=== PATIENT | male | born 1950 | race Caucasian/White ===

== ENCOUNTER 2019-07-11 05:32 | Inpatient (IN) ==
[2019-07-11] MEDS ORDERED: ASPIRIN PO ONE (05:48)
[2019-07-11] MEDS ORDERED: NITROGLYCERIN SL ONE (05:48)
[2019-07-11] MEDS ORDERED: PEPCID IV ONE (05:49)
[2019-07-11] MEDS ORDERED: SODIUM CHLORIDE 0.9% INJ ONE (05:49)
--- NOTE | 2019-07-11 05:56 | PROVIDER DOCUMENTATION ---
HPI-General Adult - General Chief Complaint: Chest Pain Stated Complaint: CP Time Seen by Provider: 07/11/19 05:40 Source: patient Allergies/Adverse Reactions: Patient Allergies Allergy/AdvReac Type Severity Reaction Status Date / Time No Known Allergies Allergy Verified 07/11/19 05:48 Home Medications: Home Medication List Medication Instructions Recorded Confirmed Last Taken Type Atenolol [Tenormin] 25 mg PO DAILY 07/11/19 07/11/19 Unknown History Glipizide 5 mg PO BID 07/11/19 07/11/19 Unknown History Losartan/Hydrochlorothiazide 1 ea PO BID 07/11/19 07/11/19 Unknown History [Losartan-Hctz 100-25 mg Tab] Metformin HCl 500 mg PO BID 07/11/19 07/11/19 Unknown History Nabumetone 500 mg PO BID 07/11/19 07/11/19 Unknown History Sildenafil [Revatio] 20 mg PO PRN PRN 07/11/19 07/11/19 Unknown History Simvastatin 40 mg PO DAILY 07/11/19 07/11/19 Unknown History Testosterone Cypionate 2 ml IM ORDERED 07/11/19 07/11/19 Unknown History - History of Present Illness -Gen Adult Nature of Presenting Problems: 68 YO MALE REPORTS LOW STERNAL/EPIGSTRIC 'INDIGESTION' DISCOMFORT FOR MORE THAN 6 HOURS TONIGHT. NO BETTER WITH TUMS WHCIH USUALLY WORK. NO HX CARDIAC DZ OR STINT. TX FOR HTN DR BATSHEVA MCKEON. DENIES ASSOCIATED SOB, NAUSEA, DIAPHORESIS. Review of Systems - Adult - REVIEW OF SYSTEMS - ADULT Constitutional: reports: no symptoms reported. denies: fever Eyes: reports: no symptoms reported Ears, Nose, Mouth & Throat: reports: no symptoms reported Cardiovascular: reports: see HPI Respiratory: reports: no symptoms reported. denies: cough, shortness of breath Gastrointestinal: reports: no symptoms reported Genitourinary: reports: no symptoms reported Musculoskeletal: reports: no symptoms reported Integumentary: reports: no symptoms reported Neurological: reports: no symptoms reported Psychiatric: reports: no symptoms reported Endocrine: reports: no symptoms reported Hematologic/Lymphatic: reports: no symptoms reported Allergic/Immunologic: reports: no symptoms reported All Other Systems: Reviewed and Negative Past History - Adult - PAST MEDICAL HISTORY-ADULT Review of Records: reports: Old Records Reviewed, Nursing Assessment Review, Medications Reviewed, Social history reviewed & non-contributory. Major Childhood Illnesses: reports: denies history Cardiovascular: reports: denies history Respiratory: reports: denies history Gastrointestinal: reports: denies history Obstetrical/Gynecological: reports: denies history Genitourinary: reports: denies history Musculoskeletal: reports: denies history Neurological: reports: denies history Endocrine/Immune: reports: Diabetes, other (LOW TESTOSTERONE) Other Conditions: reports: denies history Physical Exam-General - PHYSICAL EXAM-ADULT Initial Vital Signs Reviewed: Yes - CONSTITUTIONAL General Appearance: appears well, alert, no apparent distress - EYES Eyes: PERRL/EOMI - HEAD, EARS, NOSE, MOUTH & THROAT HENMT: normocephalic/atraumatic, moist mucous membranes - NECK Neck: non-tender, full range of motion, supple - RESPIRATORY Respiratory: lungs clear, no respiratory distress, no accessory muscle use - CARDIOVASCULAR Cardiovascular: regular rate, rhythm, no edema, no gallop, no JVD, no murmur - GASTROINTESTINAL (ABDOMEN) Abdominal Exam: soft, no organomegaly, tenderness (MILD EPIGASTRIC BUT NOT XYPHOID TENDERNESS W/O GUARDING). negative: distended, guarding, rigid, rebound - MUSCULOSKELETAL Extremity: normal range of motion, non-tender, normal gait - SKIN Integumentary: normal color, normal turgor, warm/dry. negative: cyanosis, diaphoresis - NEUROLOGIC Neurologic: door fitter II-XII nml as tested, grossly normal, no motor/sensory deficits - PSYCHIATRIC Psych/Mental Status: normal mood/affect, normal thought content, normal thought process, oriented x 3 Progress - PLAN OF CARE/RESULTS Progress/Plan/Lab Results: Vital Signs - 8 hr 07/11/19 05:45 Temperature 98 F Pulse Rate 66 Respiratory Rate 19 Blood Pressure 182/88 O2 Sat by Pulse Oximetry 97 Orders Category Date Time Status Cardiac Monitoring DIRECTED Care 07/11/19 05:48 Ordered Saline Loc NOW Care 07/11/19 05:48 Ordered CHEST-PORTABLE [RAD] Stat Exams 07/11/19 05:49 Ordered CBC WITH ELECTRONIC DIFF [HEME] Stat Lab 07/11/19 05:49 Uncollected COMPREHENSIVE METABOLIC PANEL [CHEM] Stat Lab 07/11/19 05:49 Ordered FREE T4 Stat Lab 07/11/19 05:49 Uncollected MAGNESIUM [CHEM] Stat Lab 07/11/19 05:49 Uncollected TROPONIN T HIGH SENSITIVITY Stat Lab 07/11/19 05:49 Uncollected URINALYSIS W/POSS RFLX CULT [URINALYSIS] Stat Lab 07/11/19 05:49 Uncollected Aspirin Med 07/11/19 05:48 Once 325 mg PO NOW ONE Famotidine [Pepcid] Med 07/11/19 05:49 Once 20 mg IV NOW ONE Nitroglycerin Sl [Nitroglycerin] Med 07/11/19 05:48 Once 0.4 mg SL NOW ONE Sodium Chloride 0.9% Med 07/11/19 05:49 Once 5 - 10 ml INJ NOW ONE EKG [EKG] Stat Ther 07/11/19 05:49 Ordered Result Diagrams: 07/11/19 05:45 07/11/19 05:45 - REASSESSMENT Reassessment #1 Time Reassessed: 06:04 Status: improving (MINIMAL PAIN NOW THAT SITTING UP. 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.) - EKG 1 Time of EKG reading by physician:: 05:41 EKG Read and Signed by:: Vahid Marcos EKG Interpretation (*Must complete 3 of following elements*): Abnormal Rate: 69 Rhythm: NSR [place]: left QRS: RBB (NSR, RBBB, L ANT FASC BLOCK,) - CONSULTS/PCP/HOSPITALIST Notification #1 *Consult/PCP/Hospitalist*: Dr Ramirez Time Discussed: 07:13 Consult Disposition: other (OK to admit at [facility] or Hospitalist can send patient to [facility]) #2 Consult: Dr Lynn Time Discussed: 08:43 Consult Disposition: Admit - CHANGE OF SHIFT REPORT (ED Provider) 1 Report Given and Care Transferred to:: DR Jameson RAMÍREZ Time of Transfer: 07:00 Items Pending: Physician Consult/Arrival Departure - Departure Date of Disposition Decision: 07/11/19 Time of Disposition Decision: 08:42 DIAGNOSIS: RBBB (right bundle branch block with left anterior fascicular block) Chest pain Qualifiers: Chest pain type: unspecified Qualified Code(s): R07.9 - Chest pain, unspecified Hypertension Qualifiers: Hypertension type: essential hypertension Qualified Code(s): I10 - Essential (primary) hypertension Disposition: ADMITTED INPATIENT 09 Certified Medical Emergency: Emergent Condition: Stable - Critical Care Note This patient required my direct & personal management of CC.: No Attestation - Physician/ ELIER Attestation Patient care was provided by Advanced Practice Provider:: No The physician spent face to face time with patient:: Yes Advanced Practice Provider documentation review:: Supervising physician onsite and consulted in the evaluation and care of this patient. The physician did have a face to face encounter with the patient.
[2019-07-11] MEDS ORDERED: LOPRESSOR IV ONE ×2 (06:03→06:49)
[2019-07-11 06:14] LABS: BASO# 0.03 X1000 (0.0-0.2); BASO% 0.2 % (0.0-0.8); EOS# 0.17 X1000 (0.0-0.7); EOS% 1.3 % (0.0-10.0); HEMATOCRIT 50.3 % (42.0-52.0); HEMOGLOBIN 16.9 g/dL (14.0-18.0); IMM GRAN# 0.03 X1000 (0.0-0.04); IMM GRAN% 0.2 % (0.0-0.5); LYMPH# 1.47 X1000 (1.2-3.4); LYMPH% 11.4 % (20.5-51.1); MCH 31.8 PG (27-31); MCHC 33.6 g/dL (33-37); MCV 94.5 FL (81-99); MONO# 0.75 X1000 (0.11-0.59); MONO% 5.8 % (1.7-9.3); MPV 10.6 FL (7.4-10.4); NEUT# 10.45 X1000 (1.4-6.5); NEUT% 81.1 % (42.2-75.2); PLT 206 X1000 (130-400); RBC 5.32 XMIL (4.7-6.1); RDW 13.3 % (11.5-14.5)
--- NOTE | 2019-07-11 06:28 | EKG Report ---
Test Performed on : 07/11/2019 05:37:15 AM Test Reason : CP Blood Pressure : / mmHG Vent. Rate : 069 BPM Atrial Rate : 069 BPM P-R Int : 148 ms QRS Dur : 124 ms QT Int : 394 ms P-R-T Axes : 067 -48 027 degrees QTc Int : 422 ms Normal sinus rhythm. Possible Left atrial enlargement Right bundle branch block Left anterior fascicular block Bifascicular block Septal infarct , age undetermined Abnormal ECG When compared with ECG of 07-MAY-2011 17:06, Right bundle branch block has replaced RSR' pattern in V1 Septal infarct is now present Unconfirmed Result
[2019-07-11] MEDS ORDERED: G.I. COCKTAIL ONE (06:32)
[2019-07-11 06:34] LABS: ALBUMIN 4.6 g/dL (3.5-5.0); CALCIUM 10.2 mg/dL (8.8-10.2); CREATININE 1.4 mg/dL (0.7-1.2); POTASSIUM 3.9 mmol/L (3.5-5.1); TOTAL BILIRUBIN 0.4 mg/dL (0.20-1.00); TOTAL PROTEIN 6.4 g/dL (6.3-8.3)
[2019-07-11] MEDS ORDERED: G.I. COCKTAIL PO ONE (06:35)
--- NOTE | 2019-07-11 08:00 | Diag Imaging Result Doc PS360 ---
EXAM: CHEST-2 VIEWS 07/11/2019 HISTORY: short of breath TECHNIQUE: PA and lateral chest COMMENT: There is no evidence of acute cardiac or pulmonary disease. There are no previous studies. IMPRESSION: No acute disease. Electronically signed by Sebas Ray 07/11/2019 7:57 AM
[2019-07-11] MEDS ORDERED: MORPHINE IV ONE (08:34)
[2019-07-11] MEDS ORDERED: ZOFRAN IV ONE (08:35)
[2019-07-11 08:56] LABS: URINE SOURCE CLEAN CATCH
[2019-07-11 08:57] LABS: BILIRUBIN URINE NEGATIVE (NEGATIVE); BLOOD URINE NEGATIVE (NEGATIVE); COLOR YELLOW; GLUCOSE URINE >1000 mg/dL (NEGATIVE); KETONE URINE 10 mg/dL (NEGATIVE); LEUKOCYTES URINE NEGATIVE (NEGATIVE); NITRITE URINE NEGATIVE (NEGATIVE); PH URINE 7.5; PROTEIN URINE TRACE mg/dL (NEGATIVE); SP GRAVITY URINE 1.028; TURBIDITY URINE CLEAR (CLEAR); UROBILINOGEN URINE NORMAL (NORMAL)
[2019-07-11 08:58] LABS: UR EPITHELIAL CELLS <10 /HPF (<10); URINE BACTERIA NEGATIVE /HPF; URINE RBC <10 /HPF (<10); URINE WBC <10 /HPF (<10)
[2019-07-11] MEDS ORDERED: ZOFRAN IV PRN (09:11)
[2019-07-11] MEDS ORDERED: TYLENOL PO PRN (09:11)
--- NOTE | 2019-07-11 09:22 | EKG Report ---
Test Performed on : 07/11/2019 09:09:46 AM Test Reason : repeat Blood Pressure : / mmHG Vent. Rate : 067 BPM Atrial Rate : 067 BPM P-R Int : 156 ms QRS Dur : 126 ms QT Int : 404 ms P-R-T Axes : 060 -52 000 degrees QTc Int : 426 ms Normal sinus rhythm. with sinus arrhythmia. Possible Left atrial enlargement Right bundle branch block Left anterior fascicular block Bifascicular block Left ventricular hypertrophy Abnormal ECG When compared with ECG of 11-JUL-2019 05:37, (Unconfirmed) Criteria for Septal infarct are no longer present Confirmed by Salvatore Meredith MD ([id number]) on 07/14/2019 6:51:03 PM
[2019-07-11 09:25] LABS: CK INDEX 3.1 (0.0-2.5); CK-MB 7.14 ng/mL (0.0-5.0)
[2019-07-11] MEDS ORDERED: NS 1,000 ML IV SCH (10:01)
--- NOTE | 2019-07-11 10:28 | HISTORY AND PHYSICAL ---
PRIMARY CARE PHYSICIAN: Dr. Clint Thapa. CHIEF COMPLAINT: Low sternal and epigastric chest pain that began around 1 or 2 a.m. this morning, waking him up from sleep. HISTORY OF PRESENTING ILLNESS: This is a 68-year-old male, who presents to [facility] ER with complaints of low sternal epigastric chest pain that began between 1 and 2 a.m. this morning, waking him from sleep. Denied any radiating of symptoms. No nausea, diaphoresis, but states that the pain was persistent. He did try to take some TUMS, but had no relief from that. Denied being short of breath. On arrival to the emergency room, he had a blood pressure of 182/88. His troponin first set was 17. He did have an EKG that showed normal sinus rhythm with a right bundle branch block at 69. I do not have any previous EKGs to compare to. So, he will be admitted for further evaluation and treatment. PAST MEDICAL HISTORY: Hypertension, hyperlipidemia, diabetes type 2 and low testosterone. PAST SURGICAL HISTORY: An appendectomy and tonsillectomy. FAMILY HISTORY: Reviewed and noncontributory. SOCIAL HISTORY: He lives with family, is a former smoker. Denies any alcohol or illicit drug use. ALLERGIES: He has no known drug allergies. HOME MEDICATIONS: He takes Tenormin 25 mg p.o. daily, glipizide 5 mg p.o. b.i.d. will be held, losartan/hydrochlorothiazide 100/25 1 p.o. b.i.d., metformin 500 mg p.o. b.i.d. will be held, nabumetone 500 mg p.o. b.i.d., sildenafil 20 mg p.o. p.r.n. will be held, simvastatin 40 mg p.o. daily and testosterone cypionate 2 mL IM as ordered will be held. LABORATORY DATA: Showed a white blood cell count of 12.90, hemoglobin 16.9, hematocrit 50.3, platelets 206. Sodium 139, potassium 3.9, chloride 97, CO2 of 30. BUN of 21, creatinine 1.4, glucose 226, magnesium 1.7. First set of cardiac enzymes showed a creatine kinase of 233, CK-MB is currently pending. Troponin was 17. Free T4 of 1.41. Urinalysis was negative. IMAGING STUDIES: EKG on arrival showed normal sinus rhythm with a right bundle branch block at 69. Chest x-ray showed no acute disease. REVIEW OF SYSTEMS: He denied any fever, chills, blurred vision, dizziness. He was positive for sternal and epigastric chest pain. Denied any radiating of pain. Denied any abdominal pain, constipation, diarrhea, burning or hurting with urination. PHYSICAL EXAMINATION: VITAL SIGNS: On arrival he had a temperature of 98 degrees, pulse 66, respirations 19, blood pressure 182/88, satting 97% on room air. Currently blood pressure is down to 148/65 after receiving some metoprolol 5 mg IV x2 different dosages, and a GI cocktail was also given. HEENT: Normocephalic, atraumatic. Normal ENT inspection. EYES: Pupils are equal, round, and reactive to light and accommodation. Extraocular movements are intact. NECK: Normal inspection, normal range of motion. LUNGS: Clear to auscultation bilaterally with equal lung expansion and chest wall movement. HEART: With regular rate and rhythm. No murmurs, rubs, or gallops. ABDOMEN: Soft, nontender, nondistended. Bowel sounds are present x4 quadrants. MUSCULOSKELETAL: He had 5/5 strength x4 extremities. NEUROLOGICAL: The cranial nerves 2-12 appear grossly intact. ASSESSMENT: 1. Chest pain. 2. Mild acute kidney injury. 3. Hypertension. 4. Diabetes type 2. PLAN: He will be admitted to the medical unit. We will hold him n.p.o., as he has not had anything to eat or drink since arriving to the emergency room. We will do a myocardial perfusion scan today and continue serial troponins. Continue home medications as previously identified. We will give him some normal saline at 50 mL an hour. We will do pattern blood sugars with sliding scale insulin, and further orders after seen by attending. Dictated by BELKIS Chan for Waldo Quevedo MD Addendum: Patient seen and examined by myself. Agree with BELKIS note. It reflects my assessment and plan. Patient is being admitted to hospital for chest pain. Lexiscan has been ordered. Because he also reports epigastric pain will order CT of abdomen and pelvis and will go from there. cc: BELKIS Chan MD Micah A. Howard, MD [id number]
[2019-07-11] MEDS: TENORMIN PO SCH (11:33)
[2019-07-11] MEDS: COZAAR PO SCH ×2 (11:33→22:09)
[2019-07-11] MEDS: HYDROCHLOROTHIAZIDE PO SCH ×2 (11:33→22:09)
[2019-07-11] MEDS: ZOCOR PO SCH (11:34)
[2019-07-11] MEDS: HUMALOG SUBQ SCH ×3 (11:37→22:10)
[2019-07-11] MEDS: MORPHINE IV PRN ×2 (15:29→22:17)
--- NOTE | 2019-07-11 15:45 | EKG Report ---
Test Performed on : 07/11/2019 12:58:37 PM Test Reason : Chest Pain Blood Pressure : / mmHG Vent. Rate : 075 BPM Atrial Rate : 075 BPM P-R Int : 142 ms QRS Dur : 126 ms QT Int : 374 ms P-R-T Axes : 054 -50 029 degrees QTc Int : 417 ms Sinus rhythm. with marked sinus arrhythmia. Possible Left atrial enlargement Right bundle branch block Left anterior fascicular block Bifascicular block Septal infarct , age undetermined Abnormal ECG When compared with ECG of 11-JUL-2019 09:09, (Unconfirmed) Septal infarct is now present Confirmed by Salvatore Meredith MD ([id number]) on 07/14/2019 6:50:44 PM
--- NOTE | 2019-07-11 16:35 | Diag Imaging Result Document ---
PROCEDURE NAME: MYOCARDIAL PERF SCAN, STR/REST - 07/11/2019 SUMMARY: The patient was administered 14.8 mCi of technetium-99m sestamibi after which resting cardiac images were obtained. Patient was subsequently exercised on a treadmill according to a Francois protocol and exercised for a total of 6 minutes and 31 seconds, achieving a maximal workload of stage 3 and 7.0 METS. With exercise, the heart increased from 106 beats per minute to 166 beats per minute, representing 100% of maximum age predicted heart rate. The blood pressure increased from 141/72 to 201/72. With exercise, the patient denied chest discomfort. At peak exercise, the patient was administered 43.5 mCi of technetium-99m sestamibi, after which gated stress cardiac images were obtained. Baseline ECG demonstrated sinus arrhythmia, left anterior fascicular block, and right bundle branch block. With exercise, there were no diagnostic ST-segment changes. SPECT images were reconstructed in the short, horizontal, and vertical long axis. Review of these images demonstrated homogeneous uptake of radiopharmaceutical on both stress and resting images. Gated images demonstrate a calculated left ventricular ejection fraction of 75% with symmetrical wall motion/thickening. CONCLUSIONS: 1. Average aerobic capacity for age. Target heart rate achieved. 2. Clinically negative for chest pain. 3. Electrocardiographically there were no diagnostic ST-segment changes on ECG with exercise. 4. Normal exercise sestamibi images. cc: MD Johanna Reagan CRNP
--- NOTE | 2019-07-11 17:51 | Diag Imaging Result Doc PS360 ---
EXAM: CT ABDOMEN/PELVIS W/O CONTRAST HISTORY: pancreatitis suspected TECHNIQUE: CT abdomen and pelvis without oral or intravenous contrast COMPARISON: None. FINDINGS: There is basilar atelectasis. The gallbladder is distended measuring just over 4 x 10 cm. There are several tiny stones within it. Questionable mild adjacent inflammation. No focal hepatic normality identified on this noncontrasted exam. No splenomegaly. No inflammation about the pancreas. No pancreatic calcifications. Normal adrenal glands. There are perinephric inflammatory changes. No renal stones. No hydronephrosis. Severe atherosclerosis. No aortic aneurysm. The iliac veins do not connect beneath the level of the renal veins. This is a normal variant. There is stool throughout the colon. There are many scattered colonic diverticula. The bowel loops are not dilated. No abscess. The prostate is not enlarged. Urinary bladder is moderately distended and appears normal. There has been surgery to the lower lumbar spine. IMPRESSION: 1.Cholelithiasis with questionable cholecystitis 2.Colonic diverticulosis This exam was performed using automated exposure control, adjustment of mA or kV according to patient size, and/or use of iterative reconstruction technique. Electronically signed by Jose Caba 07/11/2019 5:48 PM
[2019-07-11] MEDS: RELAFEN PO SCH (22:09)
[2019-07-12] MEDS: MORPHINE IV PRN ×4 (01:17→19:53)
[2019-07-12] MEDS ORDERED: PRILOSEC PO SCH (07:00)
[2019-07-12] MEDS: HUMALOG SUBQ SCH ×4 (07:18→20:45)
[2019-07-12] MEDS ORDERED: ASPIRIN PO SCH (09:00)
[2019-07-12] MEDS: ZOCOR PO SCH (09:56)
[2019-07-12] MEDS: COZAAR PO SCH ×3 (09:56→22:43)
[2019-07-12] MEDS: TENORMIN PO SCH (09:57)
[2019-07-12 09:58] LABS: BASO# 0.02 X1000 (0.0-0.2); BASO% 0.1 % (0.0-0.8); EOS# 0.01 X1000 (0.0-0.7); EOS% 0.1 % (0.0-10.0); HEMATOCRIT 48.3 % (42.0-52.0); IMM GRAN# 0.08 X1000 (0.0-0.04); IMM GRAN% 0.4 % (0.0-0.5); LYMPH# 0.71 X1000 (1.2-3.4); LYMPH% 3.9 % (20.5-51.1); MCH 31.7 PG (27-31); MCHC 33.1 g/dL (33-37); MCV 95.8 FL (81-99); MONO# 0.55 X1000 (0.11-0.59); MPV 10.2 FL (7.4-10.4); NEUT# 16.72 X1000 (1.4-6.5); NEUT% 92.5 % (42.2-75.2); PLT 179 X1000 (130-400); RBC 5.04 XMIL (4.7-6.1); RDW 13.6 % (11.5-14.5); WBC 18.09 X1000 (4.8-10.8)
[2019-07-12] MEDS: HYDROCHLOROTHIAZIDE PO SCH ×3 (09:58→22:44)
[2019-07-12] MEDS: RELAFEN PO SCH ×3 (10:00→22:44)
[2019-07-12 10:20] LABS: ALBUMIN 3.9 g/dL (3.5-5.0); CALCIUM 9.6 mg/dL (8.8-10.2); CREATININE 1.5 mg/dL (0.7-1.2); POTASSIUM 3.6 mmol/L (3.5-5.1); TOTAL BILIRUBIN 0.9 mg/dL (0.20-1.00); TOTAL PROTEIN 6.4 g/dL (6.3-8.3)
[2019-07-12 10:25] LABS: BANDS 1 % (0-1); LYMPHS 11 % (21-51); MONO 7 % (1-9); SEGS 81 % (42-75)
--- NOTE | 2019-07-12 10:58 | GENERAL SURGERY CONSULTATION ---
DATE: 07/12/2019 REQUESTING PHYSICIAN: Dr. Lynn. REASON FOR CONSULTATION: Cholecystitis. HISTORY OF PRESENT ILLNESS: A 68-year-old gentleman who came in with lower sternal epigastric and right upper quadrant pain starting the day prior to presentation. He was seen emergency department, had a CT scan that showed potential for cholecystitis. He also had some slight elevation in his troponins, which he had a full cardiac workup, which included a perfusion scan, which was essentially normal. He still having right upper quadrant pain that stops him when he breathes. He also has worsening leukocytosis. I was asked to weigh an opinion. Again, it is more in the right upper quadrant pain, sharp and stabbing sensation. PAST MEDICAL HISTORY: Hypertension, hyperlipidemia, diabetes mellitus type 2, and low testosterone. PAST SURGICAL HISTORY: Appendectomy, tonsillectomy. FAMILY HISTORY: Reviewed with patient, noncontributory. SOCIAL HISTORY: Former smoker. ALLERGIES: None. HOME MEDICATIONS: Reviewed. REVIEW OF SYSTEMS: A full 14 systems reviewed and negative except as specified in HPI. PHYSICAL EXAMINATION: Vital Signs: Patient is currently afebrile. Temperature max is 99.7. Vital signs remain stable. General: No acute distress. Alert, interactive, male, looks stated age. HEENT: Normocephalic, atraumatic. Pupils equal, round, reactive to light. Mucous membranes moist. Oropharynx benign. Neck: Supple. Trachea midline. Cardiovascular: Regular rate and rhythm. Lungs: Grossly clear. Abdomen: Soft. Tenderness to palpation with epigastric and right upper quadrant pain. Questionably positive Booth sign. Extremities: Moves all extremities. Neurologic: Grossly intact. Skin: No signs of jaundice. Vascular: All extremities perfused. LABORATORY: White blood cell count is 18 with a left shift. CMP yesterday was normal. Ultrasound is pending. CT scan reviewed. ASSESSMENT AND PLAN: A 68-year-old gentleman with possible cholecystitis. Possible cholecystitis. At this time, we will get an ultrasound to evaluate further but I recommend putting him on antibiotics given the fact there is a possibility if he does have cholecystitis on the ultrasound, would plan on surgical intervention tomorrow. I discussed with him the risks, benefits, and alternatives of the procedure. Risks including, but not limited to bleeding, infection, risk of anesthesia, risk of common bile duct injury, bile leak, and risk of injuring other organs. He is aware and wants to proceed if it does not seem to be clinically indicated. cc: MD Waldo Apple MD
[2019-07-12] MEDS ORDERED: NS 0 ML ONE (11:28)
[2019-07-12] MEDS ORDERED: NS 50 ML ONE (11:29)
[2019-07-12] MEDS: ZOSYN 3.375 GM in NS 50 ML IV SCH ×4 (11:42→22:44)
--- NOTE | 2019-07-12 11:52 | PROGRESS NOTE ---
DATE: 07/12/2019 SUBJECTIVE: The patient reports still having some epigastric pain and also mild right upper quadrant pain as well. OBJECTIVE: Vital Signs: Temperature 98.7, heart rate 107, respiratory rate 18, blood pressure 121/63, O2 saturation 98% on room air. General: This is a 68-year-old, male, lying in bed in no acute distress. Cardiovascular: S1, S2 heard. No murmurs, gallops, or rubs. Regular rate and rhythm. Respiratory: Clear bilaterally to auscultation. No work of breathing or using accessory muscles. Abdomen: Soft, mildly tender to palpation in the right upper quadrant. Booth's positive. No signs of peritoneal irritation. Bowel sounds present. No organomegaly. Extremities: No clubbing, cyanosis, or edema. Peripheral pulses present in both legs. Neurological: The patient is alert and oriented x3. Moves all 4 extremities. LABORATORY DATA: Reviewed. ASSESSMENT AND PLAN: 1. Chest pain. That condition is resolved. Actually, the Lexiscan is completely normal. 2. Acute cholecystitis. I think that is the reason why this patient was having this pain that initially was diagnosed as chest pain. The abdomen CT that I ordered yesterday showed cholelithiasis with questionable cholecystitis and colonic diverticulosis. In that regard, I ordered an abdominal ultrasound. The patient has been placed on Zosyn as per General Surgery recommendation, who we consulted. I think if the abdomen ultrasound confirms cholecystitis, they will proceed with laparoscopic cholecystectomy. We appreciate Surgery input. 3. Hypertension. That is under control. Will continue with the current management. 4. Diabetes mellitus type 2. Will continue with sliding scale insulin and Accu-Chek before meals and also at bedtime. cc: Waldo Quevedo MD
--- NOTE | 2019-07-12 12:50 | Diag Imaging Result Doc PS360 ---
EXAM: US ABDOMEN-COMPLETE HISTORY: acute cholecystitis TECHNIQUE: Abdominal ultrasound COMPARISON: CT abdomen 07/11/2019 FINDINGS: Normal pancreatic body. Portions of the head and tail are obscured. No aortic aneurysm. Normal inferior vena cava. There is fatty infiltration of the liver. There is an 8 mm echogenic structure noted the neck of the gallbladder. Mild gallbladder wall thickening. Common bile duct measures 5 mm. Normal kidneys. No hydronephrosis. No splenomegaly. No ascites. IMPRESSION: Small polyp or stone within the gallbladder. Mild gallbladder wall thickening could indicate cholecystitis. Electronically signed by Jose Caba 07/12/2019 12:48 PM
[2019-07-12] MEDS: NS 1,000 ML IV SCH (19:51)
[2019-07-13] MEDS: MORPHINE IV PRN ×4 (00:27→19:53)
[2019-07-13] MEDS ORDERED: NS 500 ML IV ONE (03:04)
[2019-07-13] MEDS ORDERED: LOPRESSOR 5 MG in NS 50 ML IV ONE (03:04)
[2019-07-13] MEDS ORDERED: LANOXIN IV ONE (03:04)
--- NOTE | 2019-07-13 03:11 | EKG Report ---
Test Performed on : 07/13/2019 02:55:29 AM Test Reason : change of rhythm Blood Pressure : / mmHG Vent. Rate : 155 BPM Atrial Rate : 115 BPM P-R Int : 000 ms QRS Dur : 122 ms QT Int : 304 ms P-R-T Axes : 000 -59 018 degrees QTc Int : 488 ms Critical Test Result: High HR Atrial fibrillation. with rapid ventricular response. Left axis deviation Right bundle branch block Inferior infarct , age undetermined Abnormal ECG When compared with ECG of 11-JUL-2019 12:58, (Unconfirmed) Significant changes have occurred Confirmed by Meme WILLIAM, Jimmy Melgar ([id number]) on 07/13/2019 3:34:16 PM
[2019-07-13] MEDS ORDERED: LOPRESSOR IV ONE (03:15)
[2019-07-13] MEDS: NS 1,000 ML IV SCH (03:43)
[2019-07-13] MEDS: ZOSYN 3.375 GM in NS 50 ML IV SCH ×5 (03:44→22:55)
[2019-07-13] MEDS ORDERED: CORDARONE 360 MG/D5W 360 MG/200 ML IV.SOLN IV ONE (03:54)
[2019-07-13 04:58] LABS: ALB/GLOB RATIO 0.9; ALBUMIN 2.7 g/dL (3.5-5.0); CALCIUM 8.4 mg/dL (8.8-10.2); CREATININE 1.7 mg/dL (0.7-1.2); POTASSIUM 3.9 mmol/L (3.5-5.1); TOTAL BILIRUBIN 0.72 mg/dL (0.20-1.00); TOTAL PROTEIN 5.6 g/dL (6.3-8.3)
[2019-07-13 05:03] LABS: BASO# 0.02 X1000 (0.0-0.2); BASO% 0.1 % (0.0-0.8); EOS# 0.06 X1000 (0.0-0.7); EOS% 0.3 % (0.0-10.0); HEMATOCRIT 43.7 % (42.0-52.0); HEMOGLOBIN 14.8 g/dL (14.0-18.0); IMM GRAN# 0.52 X1000 (0.0-0.04); IMM GRAN% 2.4 % (0.0-0.5); LYMPH% 2.8 % (20.5-51.1); MCH 31.8 PG (27-31); MCHC 33.9 g/dL (33-37); MONO# 1.36 X1000 (0.11-0.59); MONO% 6.4 % (1.7-9.3); NEUT# 18.74 X1000 (1.4-6.5); PLT 130 X1000 (130-400); RBC 4.65 XMIL (4.7-6.1); RDW 13.6 % (11.5-14.5)
--- NOTE | 2019-07-13 06:19 | GENERAL SURGERY PROGRESS NOTE ---
DATE: 07/13/2019 SUBJECTIVE: The patient's ultrasound did suggest cholecystitis. He was transferred over to [facility] from [place]. During the air bag buffer hours, he went into atrial fibrillation with rapid ventricular response so he was transferred down to the [facility]. The patient is just complaining of right-sided chest and right upper quadrant pain. OBJECTIVE: Vital Signs: Patient is currently afebrile. Vital signs appear stable. General: No acute distress. HEENT: Normocephalic, atraumatic. Pupils equal, round, and reactive to light. Mucous membranes moist. Oropharynx benign. Neck: Supple. Trachea midline. Cardiovascular: Somewhat irregular and tachycardic. Lungs: Grossly clear. Abdomen: Soft. Tender to palpation in the right upper quadrant. Extremities: Moves all extremities. Neurologic: Grossly intact. Skin: No signs of jaundice. Vascular: All extremities perfused. LABORATORY: Reviewed. White blood cell count has increased to 21, platelet count normal. Remainder of labs reviewed. Creatinine has gone up slightly. Bilirubin, AST, ALT and alkaline phosphatase all appear normal. ASSESSMENT AND PLAN: A 68-year-old gentleman with right upper quadrant pain now with atrial fibrillation with RVR. 1. Atrial fibrillation with RVR. Given his history of chest pain upon admission, although workup thus far has been negative. We will get Cardiology to see him prior to any kind of surgical intervention. I have already discussed this case with Dr. Joe with Cardiology. Hopefully, he we will see him this morning. 2. Cholecystitis. At this time, he is tentatively on the schedule for cholecystectomy pending evaluation by Cardiology. Discussed with the patient. We will keep him on Zosyn for right now especially given his leukocytosis. We will make further recommendations once we get cardiology's opinion. cc: MD Waldo Apple MD
[2019-07-13] MEDS: HUMALOG SUBQ SCH ×4 (06:29→20:28)
--- NOTE | 2019-07-13 07:04 | EKG Report ---
Test Performed on : 07/13/2019 06:18:34 AM Test Reason : change of status Blood Pressure : / mmHG Vent. Rate : 097 BPM Atrial Rate : 097 BPM P-R Int : 144 ms QRS Dur : 122 ms QT Int : 336 ms P-R-T Axes : 060 -52 027 degrees QTc Int : 426 ms Normal sinus rhythm. Possible Left atrial enlargement Right bundle branch block Left anterior fascicular block Bifascicular block Abnormal ECG When compared with ECG of 13-JUL-2019 02:55, (Unconfirmed) Sinus rhythm. has replaced Atrial fibrillation. Vent. rate has decreased BY 58 BPM Left anterior fascicular block is now present Criteria for Inferior infarct are no longer present Confirmed by Meme WILLIAM, Jimmy Melgar ([id number]) on 07/13/2019 3:34:19 PM
[2019-07-13] MEDS: HYDROCHLOROTHIAZIDE PO SCH ×2 (08:24→20:30)
[2019-07-13] MEDS: ZOCOR PO SCH (08:24)
[2019-07-13] MEDS: TENORMIN PO SCH (08:24)
[2019-07-13] MEDS: COZAAR PO SCH ×2 (08:24→20:29)
--- NOTE | 2019-07-13 09:08 | CARDIOLOGY CONSULTATION ---
DATE: 07/13/2019 CHIEF COMPLAINT: Right sided anterior chest discomfort/epigastric pain, HISTORY: Mr. Goldsmith is a 68-year-old male who normally follows with Dr. Thapa. He presented to the emergency room at [facility] at 5:49 a.m. on 07/11/2019. The patient said that he ate a meal on the evening of 07/10/2019. He was doing just fine and he woke up at about 1 o'clock in the morning experiencing pain in the right lower anterior chest/substernal area. He had never experienced a pain like that before. Upon presentation to the ER, they did a 12 lead EKG that showed sinus rhythm with a right bundle branch block. They also did a chest x-ray that showed no acute disease. The patient was medicated with morphine and Lopressor. They obtained a CT of the abdomen that shows cholelithiasis with possible cholecystitis. An ultrasound of the abdomen was done on 07/12/2019 that showed a small polyp or stone within the gallbladder. The gallbladder is slightly thickened. They suspect cholecystitis. They consulted Dr. Vázquez from Surgery and he felt that the patient probably had cholecystitis. They did a myocardial perfusion stress test on 07/11/2019. The patient walked on the treadmill for 6 minutes 31 seconds and achieved 100% of maximum predicted heart rate for his age. Perfusion images came back within normal range. ECG showed no ischemic changes. He reported no chest pain during the exercise. His ejection fraction by nuclear imaging was 75%. After consulting with the surgeon and after reviewing the stress test, they felt that the patient would be a good candidate for surgery and he was transferred to [facility] last night. At about 1 o'clock in the morning, he developed an episode of paroxysmal atrial fibrillation. He felt palpitation at that time, no worsening chest pain. They put him on IV amiodarone and he has converted since back to sinus rhythm. They have repeated the EKG this morning at 6:18 in the morning and it showed sinus rhythm with left atrial enlargement, right bundle branch block and left anterior fascicular block. The patient is waiting to be taken to surgery. At this time, he is not in any distress. Of note, his laboratory indicates that his white cell count has jumped from initial 12,900 on admission to 21,300 this morning. I have checked a C-reactive protein that is markedly elevated at 341.41 mg/L. They just finished doing an echocardiogram at the bedside and that showed that his ejection fraction is well preserved. PAST HISTORY: Positive for hypertension. History of diabetes mellitus type 2. Both were diagnosed about 10 years ago and he has been treated since then. Dr.Stephen Anand used to be his doctor. Now he has switched to Dr. Thapa. He has also been treated for hyperlipidemia. He has had chronic back pain for a long time. SURGICAL HISTORY: He has had surgery for spinal stenosis about 4 years ago, I believe in [place]. At that time, he had difficulty ambulating and since then, both legs are back to normal and he can walk without restriction. He has had deviated septum operated on. He also had a Dupuytren's contracture operated on. FAMILY HISTORY: Both parents of heart related conditions in their 70s. They had heart attacks. Mother also had uterine cancer. SOCIAL HISTORY: He has been for many years. He has children. 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 Retired 10 years ago. He has not been a smoker nor a drinker. REVIEW OF SYSTEMS: Basically up until the onset of these symptoms. He had really no ongoing complaint. He had been doing pretty well with his medical regimen. The patient has been diagnosed with sleep apnea syndrome several years ago. For some reason, he chose not to use the CPAP mask, I believe because of the back pain that he was having. HOME MEDICATIONS: Include 1. Simvastatin 40 mg daily. 2. Nabumetone 500 mg twice a day. 3. Metformin 500 mg twice a day. 4. Losartan hydrochlorothiazide 100 to 25 daily. 5. Glipizide 5 mg twice a day. 6. Atenolol 25 mg daily. 7. He also takes sildenafil (for Erectile Dysfunction) and testosterone. PHYSICAL EXAMINATION: Vital signs: Blood pressure today is 117/72, temperature 97.9 degrees, pulse 88, respirations 18. General: He is awake, alert, oriented, in no distress. HEENT: Unremarkable. Chest: Clear to auscultation and percussion. Heart: Heart sounds regular and rhythmic. No gallop or murmur. Abdomen: Tender in the right upper quadrant. He has positive percussion to the right upper quadrant. Bowel sounds normal. No hepatomegaly. Extremities: Show good pulses. No peripheral edema. Neurologic: Nonfocal. Moves 4 extremities. BLOOD WORK: Today, sodium 132, potassium 3.9, BUN 35, creatinine 1.7. Blood sugar is 196. IMPRESSION: 1. Patient who presented with symptoms consistent with acute cholecystitis. 2. Paroxysmal atrial fibrillation. This has resolved with amiodarone. 3. History of hypertension. 4. History of diabetes mellitus type 2. 5. Hyperlipidemia. 6. Abnormal EKG with right bundle branch block and left anterior fascicular block. 7. CT scan of the abdomen reveals that there is calcification of the left anterior descending coronary artery. 8. History of sleep apnea syndrome, untreated. 9. History of chronic back pain. RECOMMENDATION: At this time, the patient appears to be stable from the cardiovascular viewpoint. I believe he may proceed with gallbladder surgery with a reasonable risk of perioperative cardiac complications. I will be very glad to follow him at my office. The patient does have several issues that need to be addressed after discharge, including his sleep apnea syndrome and possibly hyperlipidemia. We will probably not commit him to long-term anticoagulation since it is likely that this episode of paroxysmal atrial fibrillation was mediated by the intense inflammatory process that is probably going on at the level of the gallbladder. We will follow him along. cc: MD Dio Zaidi MD MTDD
[2019-07-13] MEDS ORDERED: DIPRIVAN 1% ONE (09:10)
[2019-07-13] MEDS ORDERED: FENTANYL ONE (09:11)
[2019-07-13] MEDS ORDERED: LR 1,000 ML ONE ×2 (09:39→11:42)
[2019-07-13] MEDS ORDERED: SODIUM CHLORIDE 0.9% ONE (09:39)
[2019-07-13] MEDS ORDERED: MARCAINE 0.25% PF/EPI 1:200,000 ONE (09:39)
[2019-07-13] MEDS ORDERED: CORDARONE 540 MG in D5W 289.2 ML IV ONE (09:55)
[2019-07-13] MEDS ORDERED: ZOFRAN ONE (10:40)
[2019-07-13] MEDS ORDERED: EPHEDRINE ONE (10:40)
[2019-07-13] MEDS ORDERED: XYLOCAINE-MPF 2% ONE (10:40)
[2019-07-13] MEDS ORDERED: ZEMURON ONE (10:40)
[2019-07-13] MEDS ORDERED: NEOSTIGMINE ONE (10:40)
[2019-07-13] MEDS ORDERED: ROBINUL ONE (10:40)
[2019-07-13] MEDS ORDERED: QUELICIN (DOSE) ONE (10:40)
[2019-07-13] MEDS ORDERED: OFIRMEV 1000 MG/ISOTONIC SOLN 1,000 MG/100 ML BOTTLE ONE (10:48)
[2019-07-13] MEDS ORDERED: TORADOL ONE (10:49)
[2019-07-13] MEDS ORDERED: DECADRON ONE (10:49)
[2019-07-13] MEDS ORDERED: BRIDION ONE ×2 (11:03→11:17)
--- NOTE | 2019-07-13 11:37 | OPERATIVE NOTE ---
PROCEDURE DATE: 07/13/2019 PREOPERATIVE DIAGNOSIS: Cholecystitis. POSTOPERATIVE DIAGNOSIS: Gangrenous cholecystitis. PROCEDURE: Laparoscopic cholecystectomy. SURGEON: Owen Vázquez MD. CAUSTIC LIQUOR MAKER: Dr. Hernandez. Dr. Hernandez assisted with the entirety of the case. His presence was crucial until the completion of the case. He helped with retraction, identification of anatomy, removal of the gallbladder, and closure of the fascia. ANESTHESIA: General endotracheal. INTRAOPERATIVE FINDINGS: Gangrene of the gallbladder with purulence in the gallbladder wall. COMPLICATIONS: None at the time of this dictation. ESTIMATED BLOOD LOSS: 20 mL. SPECIMENS REMOVED: Gallbladder. DRAINS: A 19 round drain. BRIEF HISTORY: A 68-year-old gentleman who came with right upper quadrant pain and chest pain. He had a significant leukocytosis. Imaging suggesting cholecystitis. It was felt that he would benefit from cholecystectomy. The risks, benefits, and alternatives of the procedure were discussed. Risks including but not limited to bleeding, infection, risk of anesthesia, risk of common bile duct injury, bile leak, and injury to other organs discussed. All questions answered. DESCRIPTION OF PROCEDURE: After informed consent was obtained, the patient was brought to the operative theatre, transferred to the operative table in supine position. General endotracheal anesthesia was then performed without complication. A formal time-out was then performed confirming patient, date and procedure. All were in agreement. At that time, attention was given the abdomen. An infraumbilical incision was made, through which using Optiview technique, we inserted an 11 mm trocar connected insufflation. Pneumoperitoneum was achieved. Under direct visualization, we placed 3 more trocars, all 5 mm, 1 subxiphoid, 2 in the right upper quadrant. Using these, the gallbladder was identified, was retracted cephalad. It was very edematous and inflamed and there was some gangrenous parts of it. We had to aspirate some of it to be able to retract it fully. We were able to retract it cephalad. We dissected out the cystic duct and cystic artery to achieve the critical view of safety. We then doubly clipped and ligated the cystic duct and cystic artery, then dissected the gallbladder off the gallbladder fossa. There was a significant amount of purulence noted in the wall. We were able to get the gallbladder off intact. There was some drainage of gallbladder contents, but we irrigated out the abdomen after the completion of the case. We placed the gallbladder into an Endo Catch, brought it out through the infraumbilical incision. We then brought a drain from most lateral trocar site to the gallbladder fossa and secured it in place. We then closed the infraumbilical incision with 0 Vicryl on a Armando-Rian device, removed all trocars, disconnected insufflation. Pneumoperitoneum was released. All skin incisions were closed with 4-0 Monocryl. The patient was transferred back to the recovery room in stable condition. We will watch him at least another 24 hours and keep him on IV antibiotics given the nature of his gallbladder. He also probably needs to be resuscitated with another liter bolus. cc: MD Dio Apple MD
[2019-07-13] MEDS: RELAFEN PO SCH ×2 (13:21→20:29)
[2019-07-13] MEDS: LR 1,000 ML IV SCH ×2 (13:30→22:56)
--- NOTE | 2019-07-13 16:06 | PROGRESS NOTE ---
DATE: 07/13/2019 SUBJECTIVE: Patient has no major complaints. OBJECTIVE: Blood pressure is 116/72, heart rate of 74, respiratory rate of 18, temperature was 97.2 degrees, T-max 101.5 degrees.Cardiovascular: Regular rate and rhythm. Pulmonary: Bilateral breath sounds clear to auscultation. GI: Was soft, nontender. He is status post surgery so he has some tenderness but he is still in the effects of his anesthesia. White count is 21, H and H 14 and 43, platelets 130,000. Sodium 132. Creatinine 1.7. C-reactive protein 341. Troponin T is 30. PROBLEM LIST: 1. Chest pain. We will continue to follow closely. Lexiscan is normal. This is not cardiac obviously because it is #2 problem. 2. Acute cholecystitis. He is status post laparoscopic cholecystectomy. We will continue to follow. 3. Hypertension. We will continue to treat. He is on a very odd regimen of hydrochlorothiazide twice a day, Cozaar. 4. Atrial fibrillation. He is currently on amiodarone. He has an infusion going. We are holding anticoagulation until he gets through surgery. I am not sure if they are going to continue amiodarone. He is 68, but that will be at the discretion of Cardiology. We will check a magnesium level. DISPOSITION: Pending clinical status. He will not be able to be transferred though because he is on an amiodarone drip it looks like. cc: Dio Perez MD
--- NOTE | 2019-07-13 16:31 | ECHO REPORT ---
ORDER DATE: 07/13/2019 INTERPRETING PHYSICIAN: Dr. Joe REQUESTING PHYSICIAN: CLINICAL INDICATIONS: This is a 68-year-old male with atrial fibrillation, hypertension, diabetes. M-MODE MEASUREMENTS: Right ventricle: cm. Left ventricle end diastole: 4.8 cm. Left ventricle end systole: 2.7 cm. Posterior wall: 1.1 cm. Interventricular septum: 1.3 cm. Left atrium: 4.2 cm. Aortic root: 2.7 cm. SUMMARY OF 2-DIMENSIONAL IMAGIN. Left ventricular function appears to be preserved. Ejection fraction estimated at 60%. There is no wall motion abnormality noted. 2. The right ventricle appears to be mildly enlarged. 3. Aortic valve shows a minimal degree of sclerosis of the cusps. There is no stenosis. 4. Mitral valve shows mild degree of regurgitation. 5. Pulse wave Doppler of mitral inflow shows reversal of the E and the A ratio. The ratio is 0.8. 6. Tissue Doppler of septal and lateral mitral annulus averages 5.5 cm. 7. There is impaired left ventricular relaxation. 8. Tricuspid valve is normal. Color flow mapping is unremarkable. 9. Pulmonary pressure is normal. 10.Pulmonic valve looks grossly normal. 11.There is pericardial effusion, mass or thrombus. Clinical correlation is recommended. cc: MD Cortez Zaidi CRNP Alexis R. Penot, MD
[2019-07-14] MEDS: MORPHINE IV PRN ×6 (00:01→22:01)
[2019-07-14] MEDS: ZOSYN 3.375 GM in NS 50 ML IV SCH ×4 (04:59→22:02)
[2019-07-14 06:10] LABS: BASO# 0.01 X1000 (0.0-0.2); BASO% 0.1 % (0.0-0.8); EOS# 0.04 X1000 (0.0-0.7); EOS% 0.3 % (0.0-10.0); HEMATOCRIT 43.8 % (42.0-52.0); HEMOGLOBIN 14.7 g/dL (14.0-18.0); IMM GRAN# 0.05 X1000 (0.0-0.04); IMM GRAN% 0.4 % (0.0-0.5); LYMPH# 0.32 X1000 (1.2-3.4); LYMPH% 2.3 % (20.5-51.1); MCH 31.3 PG (27-31); MCHC 33.6 g/dL (33-37); MCV 93.4 FL (81-99); MONO# 0.68 X1000 (0.11-0.59); MONO% 4.8 % (1.7-9.3); MPV 11.2 FL (7.4-10.4); NEUT# 12.97 X1000 (1.4-6.5); NEUT% 92.1 % (42.2-75.2); PLT 115 X1000 (130-400); RBC 4.69 XMIL (4.7-6.1); RDW 13.7 % (11.5-14.5); WBC 14.07 X1000 (4.8-10.8)
[2019-07-14 06:42] LABS: ALB/GLOB RATIO 1.1; ALBUMIN 2.9 g/dL (3.5-5.0); CALCIUM 8.4 mg/dL (8.8-10.2); CREATININE 2.6 mg/dL (0.7-1.2); TOTAL BILIRUBIN 0.65 mg/dL (0.20-1.00); TOTAL PROTEIN 5.6 g/dL (6.3-8.3)
[2019-07-14] MEDS: HUMALOG SUBQ SCH ×4 (06:51→22:02)
[2019-07-14 07:17] LABS: BANDS 10 % (0-1); LYMPHS 2 % (21-51); MONO 4 % (1-9); SEGS 84 % (42-75)
[2019-07-14] MEDS: COZAAR PO SCH (08:45)
[2019-07-14] MEDS: LR 1,000 ML IV SCH ×2 (08:45→18:21)
[2019-07-14] MEDS: HYDROCHLOROTHIAZIDE PO SCH (08:46)
[2019-07-14] MEDS: RELAFEN PO SCH ×2 (08:46→22:02)
[2019-07-14] MEDS: TENORMIN PO SCH (08:46)
[2019-07-14] MEDS: ZOCOR PO SCH (08:46)
--- NOTE | 2019-07-14 13:23 | GENERAL SURGERY PROGRESS NOTE ---
DATE: 07/14/2019 SUBJECTIVE: Feels much better. No fevers. Pulse 82, blood pressure 123/75, oxygen saturation 94% on 3 L. In general he is alert. There is no jaundice. Incisions are intact. CARLOS drain serosanguineous. LABS: White count down to 14, hematocrit 43. Creatinine is up to 2.6, which is above his baseline of about 1.5. Bilirubin is normal. Mild elevation in his AST, alkaline phosphatase normal. ASSESSMENT AND PLAN: A 68-year-old gentleman status post cholecystectomy. He has got other medical issues that are being managed. Otherwise I have encouraged him go slow with his oral intake. He is on antibiotics. It is reasonable to continue this for another couple days. We will keep his drain for now. cc: MD Dio Espinal MD
[2019-07-14] MEDS: CORDARONE PO SCH (14:01)
--- NOTE | 2019-07-14 14:21 | CARDIOLOGY PROGRESS NOTE ---
DATE: 07/14/2019 SUBJECTIVE: Mr. Goldsmith is doing well. He has some abdominal pain associated with his recent surgery. He is tolerating oral intake. PHYSICAL EXAMINATION: Vital signs: He is afebrile. Heart rate 82, blood pressure 127/73. He is currently in sinus rhythm based on telemetry tracing reviewed by me. General: No acute distress. Cardiovascular: He sounds to be in a regular rate and rhythm. He has no murmurs. He has no S3. He has no lower extremity edema. Chest: Clear bilaterally. He has no increased work of breathing. Abdomen: Soft. He has diffuse tenderness. Bowel sounds were weakly auscultated. PERTINENT DATA: His white count is 14, hematocrit 43, platelet count 115,000. He continues to show a left shift with a bandemia. His sodium is 130, potassium 5, BUN 50, creatinine is 2.6 which is increasing from presentation when it was 1.4. His T4 was 1.41 on presentation. ASSESSMENT: Mr. Goldsmith is a 68-year-old gentleman who presented with cholecystitis. Subsequently, he underwent operative intervention. He had an episode of atrial fibrillation. PLAN: At this point, we will start him on amiodarone to try to maintain sinus rhythm in the near postoperative period. His ejection fraction was normal. He is already on a beta-michelle. Decisions for long-term anticoagulation will be made by his treating physician, Dr. Joe. Presently, we will not initiate. cc: MD Dio Heredia MD
[2019-07-14 16:55] LABS: UR CREAT RANDOM 36.7 mg/dL (14-26)
[2019-07-14] MEDS: LIPITOR PO SCH (22:02)
[2019-07-15] MEDS: MORPHINE IV PRN ×5 (02:25→20:17)
[2019-07-15] MEDS: ZOSYN 3.375 GM in NS 50 ML IV SCH ×3 (04:53→16:10)
[2019-07-15] MEDS: LR 1,000 ML IV SCH (04:53)
[2019-07-15 05:58] LABS: EOS# 0.02 X1000 (0.0-0.7); EOS% 0.1 % (0.0-10.0); HEMATOCRIT 40.1 % (42.0-52.0); HEMOGLOBIN 13.9 g/dL (14.0-18.0); LYMPH# 0.42 X1000 (1.2-3.4); MCH 32.5 PG (27-31); MCHC 34.7 g/dL (33-37); MCV 93.7 FL (81-99); MONO# 0.92 X1000 (0.11-0.59); MONO% 6.5 % (1.7-9.3); MPV 11.8 FL (7.4-10.4); NEUT# 12.77 X1000 (1.4-6.5); NEUT% 90.4 % (42.2-75.2); PLT 130 X1000 (130-400); RBC 4.28 XMIL (4.7-6.1); RDW 13.9 % (11.5-14.5); WBC 14.13 X1000 (4.8-10.8)
[2019-07-15 06:15] LABS: ALB/GLOB RATIO 1.1; ALBUMIN 2.6 g/dL (3.5-5.0); CALCIUM 8.1 mg/dL (8.8-10.2); CREATININE 2.3 mg/dL (0.7-1.2); POTASSIUM 4.1 mmol/L (3.5-5.1); TOTAL BILIRUBIN 0.72 mg/dL (0.20-1.00)
[2019-07-15] MEDS: HUMALOG SUBQ SCH ×4 (06:24→20:17)
[2019-07-15] MEDS: TENORMIN PO SCH ×2 (07:58→10:01)
[2019-07-15] MEDS: RELAFEN PO SCH ×3 (07:58→20:17)
[2019-07-15] MEDS: CORDARONE PO SCH ×2 (07:58→10:00)
--- NOTE | 2019-07-15 10:45 | GENERAL SURGERY PROGRESS NOTE ---
DATE: 07/15/2019 SUBJECTIVE: Feels much better. Remains on supplemental O2, but his O2 saturations seem to be mid 90s on room air while I am talking to him. OBJECTIVE: The abdomen is soft. Incision intact. Johnny-Porter drain serosanguineous. LABORATORY DATA: White count down to 14, hematocrit 40. Creatinine is down to 2.3 from 2.6 yesterday. LFTs are normal. ASSESSMENT AND PLAN: A 68-year-old gentleman status post laparoscopic cholecystectomy. Downtrending white count. He still has some ongoing medical issues but from a surgical perspective, we can remove his drain tomorrow. We will defer final disposition to the Medical Services. cc: MD Dio Espinal MD
--- NOTE | 2019-07-15 13:02 | CARDIOLOGY PROGRESS NOTE ---
DATE: 07/15/2019 SUBJECTIVE: Mr. Goldsmith reports that he feels much better today. His abdominal pain has improved. He is tolerating oral intake. PHYSICAL EXAMINATION: Vital Signs: He is afebrile, heart rate is 74, blood pressure is 128/65. General: He is in no acute distress. Cardiovascular: He is in a regular rate and rhythm. He has no murmurs. Review of his telemetry tracings by me shows that he is in sinus rhythm. Extremities: He has no lower extremity edema. Chest: Clear bilaterally. He has no increased work of breathing. Abdomen: Soft. Mild diffuse tenderness. PERTINENT DATA: His white count is 14, which is stable from yesterday, hematocrit 40, platelet count is 130,000. Sodium 131, potassium 4.1, BUN 54, creatinine is 2.3 (this is slightly improved from yesterday). ASSESSMENT: Mr. Goldsmith is a 68-year-old gentleman with cholecystitis, status post laparoscopic cholecystectomy. He had an episode of atrial fibrillation during the hospitalization. PLAN: He continues in sinus rhythm. We have him on oral amiodarone. Decisions for long-term anticoagulation will be made by his primary automotive customer experience advisor, Dr. Joe. At this point, I have added in some stool softeners per his request given his pain medication usage presently. cc: MD Dio Heredia MD
--- NOTE | 2019-07-15 17:53 | PROGRESS NOTE ---
DATE: 07/15/2019 SUBJECTIVE: Patient has no major complaints. OBJECTIVE: Vital signs: Blood pressure is 137/69, heart rate of 72, respiratory rate of 21, temperature 97.8 degrees, 95% on 3 L. Cardiovascular: Regular rate and rhythm. Pulmonary: Bilateral breath sounds. Clear to auscultation. GI: Soft, nontender, nondistended. Bowel sounds are positive. LABORATORY LIST: White count 14, hemoglobin and hematocrit 13 and 40, platelets 130,000 sodium 131, BUN and creatinine 54 and 2.3, which is an improvement from 2.6. We do not really have any baseline kidney function to compare to. Earlier,he was in the 1.4 range though. PROBLEM LIST: 1. Chest pain. Lexiscan is normal. He seems to be stabilizing. 2. Acute cholecystitis status post laparoscopic cholecystectomy. We will continue to monitor. 3. Hypertension is overall stable. We have held his medications because of some renal failure. 4. Acute kidney injury. Will continue gentle hydration and monitor. 5. Atrial fibrillation. Cardiology is monitoring. He is on amiodarone and atenolol. Anticoagulation will be decided by Dr. Joe tomorrow when he resumes care. DISPOSITION: Pending clinical status. He has been told he is probably going to go home tomorrow. I think that is reasonable assuming his kidney function improves. He has not been out of bed besides just sitting on the edge of the bed, so I encouraged him to try to get up. cc: Dio Perez MD
--- NOTE | 2019-07-15 17:53 | PROGRESS NOTE ---
DATE: 07/14/2019 SUBJECTIVE: The patient is weak but somewhat improved, certainly less lethargic than he was the day before. OBJECTIVE: Vitals: Blood pressure 149/85, heart rate 84, respiratory rate 29. Temperature is 98.1 degrees. Cardiovascular: Regular rate and rhythm. Pulmonary: Bilateral breath sounds, clear to auscultation. GI: Soft, nontender, nondistended. Bowel sounds are positive. LABORATORY DATA: White count was 14, hemoglobin and hematocrit 14 and 43, platelets of 115,000. Sodium 130, BUN and creatinine 50 and 2.6. PROBLEM LIST: 1. Acute kidney injury. We will hold his hydrochlorothiazide and Cozaar and continue hydration and follow. 2. Chest pain, which is atypical and likely due to his cholecystitis. Continue to monitor. 3. Acute cholecystitis status post laparoscopic cholecystectomy. Advancing diet. 4. Hypertension. We may have to modulate his medications based on his kidney dysfunction. I am just going to monitor for now. 5. Atrial fibrillation. He is on amiodarone and metoprolol per Cardiology. We will continue to monitor. 6. Disposition. Pending clinical status, improvement in his kidney dysfunction. cc: Dio Perez MD
[2019-07-15] MEDS: MIRALAX PO SCH (18:38)
[2019-07-15] MEDS: LIPITOR PO SCH (20:17)
[2019-07-15] MEDS: COLACE PO SCH (20:17)
[2019-07-15] MEDS: ZOSYN 2.25 GM in NS 50 ML IV SCH (21:59)
[2019-07-16] MEDS ORDERED: BENADRYL PO ONE ×2 (02:24→18:21)
[2019-07-16] MEDS: ZOSYN 2.25 GM in NS 50 ML IV SCH ×3 (04:04→09:56)
[2019-07-16 05:56] LABS: BASO# 0.02 X1000 (0.0-0.2); BASO% 0.2 % (0.0-0.8); EOS# 0.37 X1000 (0.0-0.7); HEMATOCRIT 42.6 % (42.0-52.0); HEMOGLOBIN 14.5 g/dL (14.0-18.0); IMM GRAN# 0.07 X1000 (0.0-0.04); IMM GRAN% 0.6 % (0.0-0.5); LYMPH% 6.6 % (20.5-51.1); MCH 31.9 PG (27-31); MCV 93.6 FL (81-99); MONO# 1.02 X1000 (0.11-0.59); MONO% 8.4 % (1.7-9.3); MPV 11.5 FL (7.4-10.4); NEUT# 9.89 X1000 (1.4-6.5); NEUT% 81.2 % (42.2-75.2); PLT 138 X1000 (130-400); RBC 4.55 XMIL (4.7-6.1); RDW 14.2 % (11.5-14.5); WBC 12.17 X1000 (4.8-10.8)
[2019-07-16 06:26] LABS: CALCIUM 8.3 mg/dL (8.8-10.2); POTASSIUM 3.8 mmol/L (3.5-5.1)
[2019-07-16] MEDS: HUMALOG SUBQ SCH ×4 (06:36→22:42)
--- NOTE | 2019-07-16 06:52 | GENERAL SURGERY PROGRESS NOTE ---
DATE: 07/16/2019 SUBJECTIVE: Patient seems to be feeling better. OBJECTIVE: Vital Signs: Patient is currently afebrile. His vital signs are stable. General: No acute distress. Cardiovascular: Regular rate and rhythm. Lungs: Grossly clear. Abdomen: Soft. Appropriately tender. CARLOS drain in place with 50 mL recorded out serosanguineous fluid. LABORATORY: Reviewed from yesterday. ASSESSMENT AND PLAN: A 68-year-old gentleman currently postoperative day #3 from a laparoscopic cholecystectomy for gangrenous cholecystitis. 1. Postoperative state at this time. From a surgical point of view, he seems to be doing okay. We will keep his Johnny-Porter drain in place just because he has a little bit of blood in the fluid, and we will just monitor. 2. Multiple medical comorbidities including cardiac arrhythmia and acute kidney injury. At this time, defer to the hospitalist as far as disposition. cc: MD Dio Apple MD
--- NOTE | 2019-07-16 08:16 | EKG Report ---
Test Performed on : 07/16/2019 08:03:52 AM Test Reason : atrial fibrillation/RBBB Blood Pressure : / mmHG Vent. Rate : 077 BPM Atrial Rate : 077 BPM P-R Int : 142 ms QRS Dur : 126 ms QT Int : 412 ms P-R-T Axes : 049 -46 003 degrees QTc Int : 466 ms Sinus rhythm. with premature supraventricular complexes. Right bundle branch block Left anterior fascicular block Bifascicular block Abnormal ECG When compared with ECG of 13-JUL-2019 06:18, premature supraventricular complexes. are now present Confirmed by Meme WILLIAM, Jimmy Melgar ([id number]) on 07/16/2019 4:22:10 PM
[2019-07-16] MEDS: CORDARONE PO SCH (08:26)
[2019-07-16] MEDS: COLACE PO SCH ×2 (08:26→22:42)
[2019-07-16] MEDS: TENORMIN PO SCH (08:26)
[2019-07-16] MEDS: RELAFEN PO SCH (08:26)
[2019-07-16] MEDS: MIRALAX PO SCH (08:26)
--- NOTE | 2019-07-16 09:08 | CARDIOLOGY PROGRESS NOTE ---
DATE: 07/16/2019 CHIEF COMPLAINT: Abdominal pain, irregular heartbeat. SUBJECTIVE: Mr. Goldsmith underwent successful cholecystectomy on 07/13/2019. Dr. Vázquez found a gangrenous cholecystitis. The patient has progressed relatively well over the weekend. White count is going down. It is back to 12,170 which is the lowest that he has had. His electrolytes are better today. Sodium is 136, potassium 3.8, BUN is 50, creatinine 2.0. All of the numbers are getting better. Albumin is 2.6. He still has discomfort but is not as bad. OBJECTIVE: Blood pressure is 127/66, temperature 98.1, pulse 80, respirations 18. Telemetry shows no recurrent atrial fibrillation. There has been a few PVCs. Chest reveals diminished breath sounds at the level of the right base. Heart sounds are regular and rhythmic. No gallop or murmur. His abdomen is tender, slightly distended. He still has a drain coming out of the gallbladder area. Extremities show good pulses, no edema. Neurologic: Follows commands, moves all 4 extremities. IMPRESSION: 1. The patient presented with acute cholecystitis. 2. Paroxysmal atrial fibrillation in the midst of it. 3. Coronary atherosclerosis noted on CT scan of the chest. 4. Hypertension. 5. Diabetes mellitus type 2. 6. Abnormal EKG with a right bundle branch block. 7. History of sleep apnea syndrome. RECOMMENDATIONS: At this time, I would continue present therapy including amiodarone and atenolol. Because this atrial fibrillation happened in the midst of septicemia or sepsis syndrome, I do not believe this patient really warrants salvage determiner anticoagulation. His echocardiogram which I reviewed shows excellent left ventricular ejection fraction at 60% without wall motion abnormality. We will follow the patient at the office. Further input will be offered on an outpatient basis. At this time, the patient seems to be progressing well. I would suggest to obtain a followup chest x-ray because of the diminished breath sounds in the right lung. I have encouraged him to use the incentive spirometer. Thank you for the opportunity to participate in his evaluation. Best regards. cc: MD Dio Zaidi MD
[2019-07-16] MEDS ORDERED: SOLU-MEDROL IV ONE (13:08)
[2019-07-16] MEDS ORDERED: NS 1,000 ML IV ONE (13:09)
[2019-07-16] MEDS ORDERED: BENADRYL CREAM TOP PRN (13:09)
[2019-07-16] MEDS ORDERED: BENADRYL CREAM TOP ONE (13:09)
[2019-07-16] MEDS ORDERED: JANUVIA PO SCH (13:15)
--- NOTE | 2019-07-16 13:56 | PROGRESS NOTE ---
DATE: 07/16/2019 SUBJECTIVE: He looks better and better every day. No major issues. OBJECTIVE: Blood pressure is 152/74, heart rate of 74, respiratory rate of 18, temperature 98.8 degrees. Cardiovascular: Regular rate and rhythm. Pulmonary: Bilateral breath sounds clear to auscultation. GI: Soft, nontender, nondistended. Bowel sounds were positive. Extremity Examination: No clubbing or cyanosis. Lymphatic Examination: No peripheral edema. He does have diminished breath sounds at the right base, almost with some egophony. Laboratory Data: White count is 12, hemoglobin and hematocrit 14 and 42, platelets 138,000. BUN and creatinine of 50 and 2, glucose of 230. PROBLEM LIST: 1. Acute kidney injury. That seems to be better. We will continue gentle hydration for 1 more day and repeat his numbers tomorrow. He has got some chronic renal failure so we will have to continue to monitor that. 2. Acute cholecystitis, status post laparoscopic cholecystectomy. He is doing better. We need to work on ambulating and getting him out of bed because I do worry he is developing atelectasis. 3. Hypertension. Appears to be stable. Adjusting his medications currently. 4. Atrial fibrillation. He is on amiodarone, metoprolol. Seems to be controlled. 5. Urticarial rash. He has urticaria all over his body which occurred after using the low water bathing pad so I think that should be listed as an allergy. We will give him 1 dose of steroids and some Benadryl cream, and see how he does. 6. Diabetes, is still not under control but I am not sure if he is getting his regular medications. DISPOSITION: I thought he could go home today. Surgery feels like he can go home. Dr. Joe I think wants to watch him 1 more day because of decreased breath sounds. He can no longer be on metformin though so we may have to find a different, because his creatinine is 2. It was 1.5. When we started, 1.4. We will initiate Januvia and see how he does with that. The glipizide is probably safe to resume but he certainly cannot be on metformin at this point unless his kidney function normalizes but hopefully, he can be discharged here soon, assuming his kidney function stabilizes. cc: Dio Perez MD
[2019-07-16] MEDS ORDERED: BENADRYL PO PRN (22:30)
[2019-07-16] MEDS: LIPITOR PO SCH (22:42)
[2019-07-17] MEDS ORDERED: NORCO-5 PO PRN (05:26)
[2019-07-17] MEDS: HUMALOG SUBQ SCH ×2 (06:17→10:43)
--- NOTE | 2019-07-17 06:21 | GENERAL SURGERY PROGRESS NOTE ---
DATE: 07/17/2019 SUBJECTIVE: Patient seems to be doing well. He was transferred up from the [facility] to the 4th floor. He is tolerating his diet. His pain is controlled. OBJECTIVE: Vital Signs: Patient is currently afebrile. His vital signs are stable. General: No acute distress. Cardiovascular: Regular rate and rhythm. Lungs: Grossly clear. Abdomen: Soft. Appropriately tender. CARLOS drain with minimal serosanguineous output. ASSESSMENT AND PLAN: A 68-year-old gentleman status post laparoscopic cholecystectomy. 1. Postoperative state at this time, he seems to be doing well. From a surgical point of view, I think he can go home. We will transition him over to p.o. pain medicine. We will keep his Johnny-Porter drain in place. 2. Acute kidney injury. At this time, it seems to be improving. cc: MD Dio Apple MD
[2019-07-17 07:00] LABS: BASO# 0.02 X1000 (0.0-0.2); BASO% 0.1 % (0.0-0.8); EOS# 0.03 X1000 (0.0-0.7); EOS% 0.2 % (0.0-10.0); HEMATOCRIT 45.7 % (42.0-52.0); HEMOGLOBIN 15.3 g/dL (14.0-18.0); IMM GRAN# 0.34 X1000 (0.0-0.04); IMM GRAN% 1.9 % (0.0-0.5); LYMPH# 0.85 X1000 (1.2-3.4); LYMPH% 4.9 % (20.5-51.1); MCH 31.4 PG (27-31); MCHC 33.5 g/dL (33-37); MCV 93.6 FL (81-99); MONO# 1.48 X1000 (0.11-0.59); MONO% 8.5 % (1.7-9.3); MPV 11.7 FL (7.4-10.4); NEUT# 14.72 X1000 (1.4-6.5); NEUT% 84.4 % (42.2-75.2); PLT 177 X1000 (130-400); RBC 4.88 XMIL (4.7-6.1); WBC 17.44 X1000 (4.8-10.8)
[2019-07-17 07:31] VITALS: BP 148/67
[2019-07-17 07:42] LABS: CALCIUM 8.4 mg/dL (8.8-10.2); CREATININE 2.1 mg/dL (0.7-1.2); POTASSIUM 4.2 mmol/L (3.5-5.1)
[2019-07-17 08:31] LABS: BANDS 4 % (0-1); LYMPHS 6 % (21-51); MONO 2 % (1-9); SEGS 88 % (42-75)
--- NOTE | 2019-07-17 08:43 | Diag Imaging Result Doc PS360 ---
EXAM: CHEST-2 VIEWS HISTORY: hypoxia/Atelectasis right lung/ s/p cholecystectom TECHNIQUE: Two views COMPARISON: 07/11/2019 FINDINGS: The lungs are well expanded. The heart is not enlarged. The vessels are not distended. There are no infiltrates. Tiny right pleural effusions. IMPRESSION: Tiny right pleural effusion Electronically signed by Jose Caba 07/17/2019 8:40 AM
[2019-07-17] MEDS: COLACE PO SCH (08:53)
[2019-07-17] MEDS: CORDARONE PO SCH (08:53)
[2019-07-17] MEDS: TENORMIN PO SCH (08:53)
[2019-07-17] MEDS: MIRALAX PO SCH (08:54)
--- NOTE | 2019-07-18 05:26 | DISCHARGE SUMMARY ---
ADMISSION DATE: 07/13/2019 DISCHARGE DATE: 07/17/2019 DISPOSITION: Home. FOLLOW-UP: 1. Dr. Vázquez. 2. Dr. Elier Jaramillo. 3. Dr. Joe. CONSULTATIONS DURING ADMISSION: Surgery was consulted. Patient was seen by Dr. Vázquez and followed up by Dr. Wright. Cardiology was consulted. Patient was seen by Dr. Joe and followed by Dr. Huang Rogel. INVASIVE PROCEDURES DURING ADMISSION: A laparoscopic cholecystectomy was done by Dr. Vázquez on 07/13/2019. ADMISSION DIAGNOSES: 1. Chest pain. 2. Mild acute kidney injury. 3. Hypertension. 4. Diabetes mellitus. IMAGING STUDIES OF SIGNIFICANCE: 1. Chest x-ray was unremarkable. The myocardial perfusion scan was normal. No stress induced symptoms. 2. CT scan of the abdomen and pelvis without contrast did show cholelithiasis with questionable cholecystitis. 3. Ultrasound of the abdomen it did show small polyp or stone within the gallbladder. Mild wall thickening could indicate cholecystitis. 4. Echocardiogram showed an ejection fraction of 60%. No wall motion abnormality. 5. Chest x-ray this morning showed tiny right pleural effusion. DISCHARGE DIAGNOSES: 1. Sepsis secondary to acute gangrenous cholecystitis. 2. Acute on chronic kidney failure. 3. Paroxysmal atrial fibrillation during the hospital course. 4. Diabetes mellitus. 5. Hypertension. 6. Gangrenous cholecystitis status post laparoscopic cholecystectomy. DISCHARGE MEDICATIONS: 1. Atenolol 25 mg p.o. daily. 2. Glipizide 5 mg b.i.d. 3. Nabumetone 500 b.i.d. 4. Testosterone. 5. Viagra 20 mg p.o. daily. 6. Amiodarone 400 mg once daily for 1 week, and then 200 mg. 7. Lactobacillus. 8. Levofloxacin 500 p.o. daily. 9. Amlodipine 10 mg p.o. daily. 10. Januvia 100 mg p.o. daily. 11. Atorvastatin 40 mg p.o. daily. DISCONTINUED MEDICATIONS: 1. Metformin. 2. Losartan and hydrochlorothiazide due to acute kidney injury on top of chronic renal failure. 3. Simvastatin. PRESENTING COMPLAINT: Low sternal and epigastric pain. HISTORY OF PRESENTING COMPLAINT: Mr. Goldsmith is a 68-year-old gentleman with a history of hypertension, dyslipidemia, diabetes mellitus, and low testosterone, who came to the emergency room because of an acute onset of low chest, upper epigastric discomfort. Upon presenting to the emergency room, he was evaluated. He was slightly hypertensive. His initial troponin was unremarkable. EKG did show normal sinus rhythm, and right bundle branch block. He was initially admitted for cardiac workup. However, during the workup, he was found also to have abnormal gallbladder. The cardiac workup came back completely unremarkable so the ultrasound was done on the gallbladder, which revealed a possible cholecystitis. The patient was initially at [facility], and was transferred to [facility] for higher level of care. During the hospital course, Surgery was consulted. Patient was evaluated by Dr. Vázquez who made a decision to take the patient to OR. A laparoscopic cholecystectomy was done. The findings were consistent with gangrenous cholecystitis. Pathology report has come back confirming the acute cholecystitis with gangrenous necrotic necrosis. During the hospital course, he also got complicated with transient atrial fibrillation. He was evaluated by Cardiology, Dr. Joe. I have discussed the case this morning with him. He wants the patient to be discharged on 1 week course of amiodarone 400 mg to be switched to 200 mg after 1 week. Mr. Goldsmith and is currently stable. He has had a bowel movement. He is eating well. His white cell count is still a little bit elevated, predominantly neutrophilic. Though he has been afebrile, I think his gallbladder was quite terrible and I think he actually needs to continue his antibiotics for another week. He does have a chest x-ray that did show mild elevation of the right hemidiaphragm, and after discussing the case with Dr. Joe, he also thinks that there is a very high probability that he could form a subdiaphragmatic infectious process after the surgery so we should cover him with antibiotics at least for now. Mr. Goldsmith is clinically stable for discharge today. All the discharge instructions have been discussed with him. I have notified him that his losartan with hydrochlorothiazide has been discontinued because of the acute on the chronic renal failure. His metformin has also been discontinued because of the CKD. He is going to continue with the glipizide and Januvia, has been added to his medications. TIME SPENT: Time spent for discharge is 35 minutes. cc: FabianMD Dio Perez MD
== END 2019-07-17 13:33 | disposition home or self-care (01) | DRG 854 ==
LOC: P.ED 05:32 → P.MEDSURG 09:43 → INTOOBSV 09:43 → SUATTDRO 09:43 → 4N 07-12 18:55 → 2N 07-13 04:22 → SUATTDRO 07-13 12:33 → 4N 07-16 17:25
PROVIDERS: ADMIT Internal Medicine; ATTEND Internal Medicine